=== PATIENT | male | born 1960 | race Caucasian/White ===

== ENCOUNTER → 2019-09-25 15:03 | Outpatient (BNVA) | payer MEDICARE, OTHER, SELFPAY | PROVIDERS: Family Provider Internal Medicine; PCP Internal Medicine; Visit Provider Internal Medicine | DX: E11.9 Type 2 diabetes mellitus without complications (principal); K75.81 Nonalcoholic steatohepatitis (NASH); E03.9 Hypothyroidism, unspecified; E78.5 Hyperlipidemia, unspecified; K21.0 Gastro-esophageal reflux disease with esophagitis; M19.90 Unspecified osteoarthritis, unspecified site; I10 Essential (primary) hypertension | CPT/HCPCS: 80053; 80061; 83036; 84443; 85025 ==

== ENCOUNTER 2021-01-09 10:44 | Emergency (ER) | payer MEDICARE, SELFPAY ==
[2021-01-09] VITALS (9 sets, daily range): BP systolic 94–123; BP diastolic 69–81; PULSE 100–131; RESP 20–29; O2SAT 91–100; BMI 27.4
--- NOTE | 2021-01-09 10:49 | CTR_ITS ---
PROCEDURE INFORMATION: Exam: CT Head Without Contrast Exam date and time: 01/09/2021 10:49 AM Age: 60 years old Clinical indication: Coma or unconsciousness; Patient HX: Found down; Additional info: Nonresponsive unknown cause TECHNIQUE: Imaging protocol: Computed tomography of the head without contrast. Total images: 209 Radiation optimization: All CT scans at this facility use at least one of these dose optimization techniques: automated exposure control; mA and/or kV adjustment per patient size (includes targeted exams where dose is matched to clinical indication); or iterative reconstruction. COMPARISON: CT head wo con* [id number] 09/08/2017 9:21 PM RADIATION DOSE METRICS: Total DLP (mGy-cm): 1017.88 FINDINGS: Brain: Large intraparenchymal hemorrhage within the left frontal lobe with minimal intraparenchymal hemorrhage present inferiorly in the right frontal lobe. Adjacent areas of edema are present in bifrontal lobes. The left frontal hemorrhage measures 4.5 by 2.5 cm and extends to the frontal horn of the left lateral ventricle. Global brain atrophy and chronic white matter ischemic changes are present. Small amount of subdural hemorrhage noted along the falx and left parietooccipital convexity. Cerebral ventricles: Small amounts of intraventricular hemorrhage are seen layering posteriorly. Ventricles are appropriate in size for degree of atrophy. Mass effect noted on frontal horn of the left lateral ventricle without significant midline shift. Paranasal sinuses: Visualized sinuses are unremarkable. No fluid levels. Mastoid air cells: Partially opacified right mastoid air cells and tympanic cavity with fracture extending through the right mastoid air cells and external auditory canal. Bones/joints: Unremarkable. No acute fracture. Soft tissues: Unremarkable. CT/CT head wo con* [id number] IMPRESSION: 1. Large intraparenchymal hemorrhage within the left frontal lobe with minimal intraparenchymal hemorrhage present inferiorly in the right frontal lobe. Adjacent areas of edema are present in bifrontal lobes. The left frontal hemorrhage measures 4.5 by 2.5 cm and extends to the frontal horn of the left lateral ventricle. 2. Small amounts of intraventricular hemorrhage are seen layering posteriorly. 3. Small amount of subdural hemorrhage noted along the falx and left parietooccipital convexity. 4. Mass effect noted on frontal horn of the left lateral ventricle without significant midline shift. 5. Partially opacified right mastoid air cells and tympanic cavity with fracture extending through the right mastoid air cells and external auditory canal. Radiation Dose CTDIVOL = (mGy): DLP = 1017.88 (mGy-cm)
--- NOTE | 2021-01-09 10:51 | XRR_ITS ---
PROCEDURE INFORMATION: Exam: XR Chest Exam date and time: 01/09/2021 10:51 AM Age: 60 years old Clinical indication: Device placement; Other: Et and ng placement; Additional info: Dyspnea/cough TECHNIQUE: Imaging protocol: XR of the chest. Views: 1 view. Total images: 1 COMPARISON: CR Arthrgram Shoulder RIGHT [id number] 04/16/2018 12:57 PM FINDINGS: Tubes, catheters and devices: An endotracheal tube is present, terminating above the huong by 5 cm. Nasogastric tube has its proximal port in the lower esophagus, recommend advancement by 7-10 cm. Lungs: Streaky left basilar opacity favors atelectasis. Benign granulomatous disease of the lung is noted. Pleural spaces: Unremarkable. No pleural effusion. No pneumothorax. Heart/Mediastinum: Unremarkable. No cardiomegaly. Bones/joints: Osseous structures are unchanged from the prior exam. XR/XR chest 1V portable [id number] IMPRESSION: 1. An endotracheal tube is present, terminating above the huong by 5 cm. 2. Nasogastric tube has its proximal port in the lower esophagus, recommend advancement by 7-10 cm. 3. Streaky left basilar opacity favors atelectasis. Radiation Dose CTDIVOL = (mGy): DLP = (mGy-cm)
--- NOTE | 2021-01-09 10:56 | ECG_ITS ---
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 Measurements Intervals [place] Rate: 126 P: [place]: QRS: -32 QRSD: 153 T: 55 QT: 426 QTc: 617 Interpretive Statements ATRIAL FLUTTER/TACHYCARDIA WITH RAPID VENTRICULAR RESPONSE INDETERMINATE AXIS RIGHT BUNDLE BRANCH BLOCK [120+ ms QRS DURATION, UPRIGHT V1, 40+ ms S IN I/aVL/V4/V5/V6] No previous ECG available for comparison Electronically Signed On 01-09-2021 21:28:24 CDT by Cheikh Cuellar M.D. [id number]
[2021-01-09 10:58] LABS: ABG PCO2 34.4 mmHg (35-45); ABG PH Result 7.12 (7.35-7.45); Alveolar-Arterial Oxygen Gradi 71.7 mmHg (5-10); Arterial Blood Gas Hematocrit 57.2 % (42-52); Blood Gas Allen Test Pos; Blood Gas Operator Identificat MONRO; Blood Gas Sample Site Brachial, right; Blood Gas Sample Type Arterial; Blood Gas Tidal Volume 0.45; Carboxyhemoglobin 1.4 %THgb (0.4-20.1); HCO3 ABG 11.3 mmol/L (22-26); HGB O2 Sat 94.7 % (95-100); Ionized Calcium Level - ABG 1.4 mmol/L (1.1-1.4); Methemoglobin 0.6 % (0.4-1.5); Oxygen Device VENT; Oxygen Saturation ABG 96.5; Potassium Level - ABG 3.9 mmol/L (3.5-5.0); Total Hemoglobin 18.6 g/dL (14-18)
--- NOTE | 2021-01-09 10:58 | CTR_ITS ---
PROCEDURE INFORMATION: Exam: CT Abdomen And Pelvis Without Contrast Exam date and time: 01/09/2021 10:58 AM Age: 60 years old Clinical indication: Unresponsive; Found down; Abd pain TECHNIQUE: Imaging protocol: Computed tomography of the abdomen and pelvis without contrast. Radiation optimization: All CT scans at this facility use at least one of these dose optimization techniques: automated exposure control; mA and/or kV adjustment per patient size (includes targeted exams where dose is matched to clinical indication); or iterative reconstruction. COMPARISON: No relevant prior studies available. RADIATION DOSE METRICS: Total DLP (mGy-cm): 1130.49 FINDINGS: Tubes, catheters and devices: There is an enteric tube extending down into the stomach. Lungs: There is bilateral dependent/posterior airspace disease, more prominent on the left. This could be due to pneumonia or aspiration pneumonitis as well as with atelectasis. Liver: The liver is homogeneous and is not enlarged. Gallbladder and bile ducts: No calcified gallstones, gallbladder wall thickening, or pericholecystic inflammation. No biliary ductal dilation. Pancreas: No pancreatic enlargement, peripancreatic inflammation, or ductal dilation. Spleen: The spleen is homogeneous and is not enlarged. There is accessory splenic tissue. Adrenal glands: No adrenal mass. Kidneys and ureters: No hydronephrosis or nephrolithiasis. Stomach and bowel: No bowel obstruction, colitis or diverticulitis. Appendix: The appendix has a normal caliber with no wall thickening. No periappendiceal stranding. Intraperitoneal space: No hemoperitoneum, pneumoperitoneum or ascites. Vasculature: There is coronary artery disease. The aorta is atherosclerotic. No abdominal aortic aneurysm. Lymph nodes: No pathologically enlarged lymph nodes. Urinary bladder: No urinary bladder calculus or wall thickening. There is a Valadez catheter in the urinary bladder. Reproductive: Calcification of the vas deferens bilaterally which can be associated with diabetes mellitus. Bones/joints: There are bilateral lower rib fractures, some appear acute while others are subacute or chronic. There is a fracture of the coccyx which could be acute or subacute. The sacroiliac joints and symphysis pubis are not diastatic. Soft tissues: Tiny umbilical hernia containing fat. CT/CT abdomen pelvis wo con [id number] IMPRESSION: 1. Acute versus subacute coccygeal fracture. 2. Bilateral lower rib fractures, of varying ages. 3. No solid organ injury or hemoperitoneum. 4. Bibasilar airspace disease. Considerations include pneumonia or aspiration pneumonitis. Radiation Dose CTDIVOL = (mGy): DLP = 1130.49 (mGy-cm)
--- NOTE | 2021-01-09 11:03 | W.ED.GENADLT ---
HPI - General Adult General: Chief complaint: Cardiac Arrest/CPR Stated complaint: POST CODE/ RSI Time Seen by Provider: 01/09/21 10:48 History of Present Illness: HPI narrative: 60-year-old male presents via EMS. They were called for a nonresponsive patient on arrival he was in acute respiratory distress with respiratory rate in the 40s he was treated by RSI and intubated. Shortly after that patient was intubated he was given 80 of rocuronium 160 mg of ketamine. Shortly after this patient went into PEA he was given 1 epi his rhythm changed to V. tach he was shocked at 200 and given 300 of amiodarone. He then returned to sinus tachycardia. On arrival here he is in A. fib rate in the 120s. Blood sugar on blood gas over 600. Patient was last seen by family members 3 days ago. Relieving factors: none Exacerbating factors: none Review of Systems General: Reports: ROS unobtainable due to medical condition [facility] ED PFSH: Medical History (Updated 01/16/21 @ 12:18 by Efra Milner DO) Alcohol dependence, uncomplicated Diabetes mellitus Essential (primary) hypertension GERD (gastroesophageal reflux disease) Hyperlipidemia, unspecified Osteoarthritis Family History Other Asthma Diabetes Heart disease Hypertension Social History Quit status (tobacco): has quit using tobacco Year quit tobacco: 08/2020 Former quit date comment: 0.25 PPD X 35 YEARS Alcohol intake: current History of recent travel: No Physical Exam HENMT: COMMON NORMALS: normocephalic, atraumatic and hearing grossly normal bilaterally HEAD & SCALP: normocephalic and atraumatic Neck/C-Spine: COMMON NORMALS: no JVD Lymph: LYMPHATIC: no lymphadenopathy noted and no lymphedema noted Resp: COMMON NORMALS: normal respiratory effort, No retractions, No use of accessory muscles and clear to auscultation bilaterally AUSCULTATION: clear to auscultation bilaterally Cardio: COMMON NORMALS: no JVD, regular rate, regular rhythm and No murmurs present (Cardio) RATE: regular rate RHYTHM: regular rhythm GI: COMMON NORMALS: Soft to palpation and No hepatosplenomegaly present AUSCULTATION: Yes normoactive bowel sounds PALPATION: Yes Soft to palpation, No Tenderness to palpation present (GI), No Guarding due to palpation present (GI) and Yes No hepatosplenomegaly present Extremity: COMMON NORMALS: normal to inspection, capillary refill normal, no clubbing, cyanosis or edema, no calf tenderness and no pedal edema Skin: COMMON NORMALS: no rashes or lesions noted GENERAL SKIN EXAM: no rashes or lesions noted Procedures Central Line Placement Right SC: Time Out Performed: Yes Patient Placed on Monitor/Pulse Ox: Yes MD Prep: mask, gown and gloves Central Line Prep: Chlorhexidine scrub Ultrasound Used for Placement: Yes Central Line Lumen Inserted: triple Post Procedure: sutured in place, good blood return, all ports aspirated, flushed, capped and sterile dressing applied Post Procedure X-Ray: tip of catheter in good position and no pneumothorax seen Patient Tolerated Procedure: well Complications: none Course Vital Signs: Vital signs: Vital Signs Pulse Rate 111 H 01/09/21 15:33 Respiratory Rate 29 H 01/09/21 13:40 Blood Pressure 94/69 01/09/21 15:33 Pulse Oximetry 93 01/09/21 15:33 MDM - General Adult MDM Narrative: Medical decision making narrative: On initial evaluation patient was found to have DKA he was resuscitated initially and once stabilized enough he would be proceeded to CT to evaluate for further injuries. At that point we found the patient had a large intracranial hemorrhage in addition to that he has various fractures right sacral alae fracture a number of rib fractures are somewhat old and some appear newer. In talking to the family patient frequently falls. He had no external trauma to the head that we could find so can be certain this is from trauma although it sounds like it may have been. This would certainly explain the various rib fractures. We will initially plan to admit him here but with the finding of intracranial bleed he was transferred to the ED at [facility]. Trauma service will see him initially in consult for his DKA and other medical issues. Lab Data: Labs: Lab Results 01/09/21 01/09/21 01/09/21 10:45 10:53 10:56 WBC 12.8 10^3/uL H 10 ^3/uL (4.0-10.0) RBC 5.81 10^6/uL H 10 ^6/uL (4.1-5.3) Hgb 18.0 g/dL H g/dL (11.7-16.6) Hct 58.4 % H % (42.0-52.0) MCV 100.5 fl H fl (80-94) MCH 31.0 pg pg (28.0-34.0) MCHC 30.8 g/dL g/dL (30.0-36.0) RDW 12.8 % % (12.1-15.1) Plt Count 215 10^3/cmm 10^3 /cmm (130-400) MPV 12.3 fL H fL (7.4-10.4) Neut % (Auto) 71.5 % % Lymph % (Auto) 17.2 % % [place] % (Auto) 9.5 % % Eos % (Auto) 0.1 % % Baso % (Auto) 0.5 % % Neut # (Auto) 9.16 10^3/uL H 10 ^3/uL (1.8-7.7) Lymph # (Auto) 2.2 10^3/uL 10^3/ uL (0.8-4.8) [place] # (Auto) 1.2 10^3/uL H 10^ 3/uL (0.2-0.9) Eos # (Auto) 0.0 10^3/uL 10^3/ uL (0.0-0.8) Baso # (Auto) 0.1 10^3/uL 10^3/ uL (0.0-0.1) Nucleated RBC % (a uto) 0 % % Nucleated RBCs # 0.0 /100WBC /100W BC PT INR APTT Specimen Type Arterial Sample Site Brachial, right ABG pH 7.12 L* (7.35-7.45) ABG pCO2 34.4 mmHg L mmHg (35-45) ABG pO2 114.0 mmHg H mmHg (80.0-100.0) ABG HCO3 11.3 mmol/L L mmo l/L (22-26) ABG O2 Saturation 96.5 ABG Base Excess -17.0 mmol/L L mm ol/L (-2.0-2.0) Santana Test Pos A-a O2 Gradient 71.7 mmHg H mmHg (5-10) Hematocrit 57.2 % H % (42-52) Hgb O2 Saturation 94.7 % L % (95-100) Carboxyhemoglobin 1.4 %THgb %THgb (0.4-20.1) Methemoglobin 0.6 % % (0.4-1.5) Total Hemoglobin 18.6 g/dL H g/dL (14-18) Sodium 160.0 mmol/L H mm ol/L (131-143) Potassium 3.9 mmol/L mmol/L (3.5-5.0) Glucose 682.0 mg/dL H mg/ dL (70-115) Ionized Calcium 1.4 mmol/L mmol/L (1.1-1.4) O2 Delivery Device Vent FiO2 100.0 % % Tidal Volume 0.45 PEEP 5.0 cmH20 cmH20 [employer] Equipment Mechanic ID Monro Chloride Carbon Dioxide Anion Gap BUN Creatinine GFR Calculation POC Glucose 527 mg/dL H* mg/d L (70-110) Calculated Osmolal ity Lactic Acid Lactic Acid (Sepsi s) Calcium Phosphorus Magnesium Total Bilirubin AST ALT Alkaline Phosphata se Ammonia Creatine Kinase Troponin T Baselin e Troponin T 120 [place] Troponin T C-Reactive Protein Total Protein Albumin Globulin Lipase Procalcitonin Urine Color Urine Appearance Urine pH Ur Specific Gravit y Urine Protein Urine Glucose (UA) Urine Ketones Urine Blood Urine Nitrate Urine Bilirubin Urine Urobilinogen Ur Leukocyte Liliane ase Urine RBC Urine WBC Ur Squamous Epith Cells Amorphous Sediment Urine Bacteria Urine Mucus Urine Opiates Scre en Ur Barbiturates Sc reen Ur Phencyclidine S crn Ur Amphetamines Sc reen U Benzodiazepines Scrn Urine Cocaine Scre en U Marijuana (THC) Screen Ethyl Alcohol Serum Ketones SARS-CoV-2 Ag (Rap id) 01/09/21 01/09/21 01/09/21 10:56 10:56 10:56 WBC RBC Hgb Hct MCV MCH MCHC RDW Plt Count MPV Neut % (Auto) Lymph % (Auto) [place] % (Auto) Eos % (Auto) Baso % (Auto) Neut # (Auto) Lymph # (Auto) [place] # (Auto) Eos # (Auto) Baso # (Auto) Nucleated RBC % (a uto) Nucleated RBCs # PT 15.80 SECONDS H S ECONDS (12.1-14.9) INR 1.22 H (0.8-1.2) APTT 24.7 SECONDS SECO NDS (23.9-36.7) Specimen Type Sample Site ABG pH ABG pCO2 ABG pO2 ABG HCO3 ABG O2 Saturation ABG Base Excess Santana Test A-a O2 Gradient Hematocrit Hgb O2 Saturation Carboxyhemoglobin Methemoglobin Total Hemoglobin Sodium 151 mmol/L H mmol /L (136-145) Potassium 4.0 mmol/L mmol/L (3.5-5.1) Glucose 618 mg/dL H* mg/d L (65-115) Ionized Calcium O2 Delivery Device FiO2 Tidal Volume PEEP [employer] Equipment Mechanic ID Chloride 104 mmol/L mmol/L (98-107) Carbon Dioxide 12 mmol/L L mmol/ L (22-29) Anion Gap 39.0 H (5-19) BUN 73 mg/dL H mg/dL (8-23) Creatinine 2.9 mg/dL H mg/dL (0.7-1.2) GFR Calculation 22.2 mL/min L mL/ min (90-130) POC Glucose Calculated Osmolal ity 362 mOsm/kg H mOs m/kg (285-295) Lactic Acid 4.8 mmol/L H* mmo l/L (0.5-2.2) Lactic Acid (Sepsi s) Calcium 10.1 mg/dL mg/dL (8.5-10.5) Phosphorus Magnesium 3.1 mg/dL H mg/dL (1.7-2.3) Total Bilirubin 0.6 mg/dL mg/dL (0.15-1.2) AST 26 U/L U/L (0-40) ALT 23 U/L U/L (0-41) Alkaline Phosphata se 92 IU/L IU/L (40-130) Ammonia Creatine Kinase 95 U/L U/L (39-308) Troponin T Baselin e Troponin T 120 [place] Troponin T C-Reactive Protein Total Protein 7.6 g/dL g/dL (6.6-8.7) Albumin 3.5 g/dL g/dL (3.5-5.2) Globulin 4.1 g/dL g/dL (1.3-4.6) Lipase Procalcitonin Urine Color Urine Appearance Urine pH Ur Specific Gravit y Urine Protein Urine Glucose (UA) Urine Ketones Urine Blood Urine Nitrate Urine Bilirubin Urine Urobilinogen Ur Leukocyte Liliane ase Urine RBC Urine WBC Ur Squamous Epith Cells Amorphous Sediment Urine Bacteria Urine Mucus Urine Opiates Scre en Ur Barbiturates Sc reen Ur Phencyclidine S crn Ur Amphetamines Sc reen U Benzodiazepines Scrn Urine Cocaine Scre en U Marijuana (THC) Screen Ethyl Alcohol < 10 mg/dL mg/dL (0-10) Serum Ketones SARS-CoV-2 Ag (Rap id) 01/09/21 01/09/21 01/09/21 10:56 10:56 10:56 WBC RBC Hgb Hct MCV MCH MCHC RDW Plt Count MPV Neut % (Auto) Lymph % (Auto) [place] % (Auto) Eos % (Auto) Baso % (Auto) Neut # (Auto) Lymph # (Auto) [place] # (Auto) Eos # (Auto) Baso # (Auto) Nucleated RBC % (a uto) Nucleated RBCs # PT INR APTT Specimen Type Sample Site ABG pH ABG pCO2 ABG pO2 ABG HCO3 ABG O2 Saturation ABG Base Excess Santana Test A-a O2 Gradient Hematocrit Hgb O2 Saturation Carboxyhemoglobin Methemoglobin Total Hemoglobin Sodium Potassium Glucose Ionized Calcium O2 Delivery Device FiO2 Tidal Volume PEEP [employer] Equipment Mechanic ID Chloride Carbon Dioxide Anion Gap BUN Creatinine GFR Calculation POC Glucose Calculated Osmolal ity Lactic Acid Lactic Acid (Sepsi s) Calcium Phosphorus Magnesium Total Bilirubin AST ALT Alkaline Phosphata se Ammonia 54 umol/L umol/L (16-60) Creatine Kinase Troponin T Baselin e 54 ng/L H ng/L (0-15) Troponin T 120 [place] Troponin T C-Reactive Protein Total Protein Albumin Globulin Lipase Procalcitonin Urine Color Urine Appearance Urine pH Ur Specific Gravit y Urine Protein Urine Glucose (UA) Urine Ketones Urine Blood Urine Nitrate Urine Bilirubin Urine Urobilinogen Ur Leukocyte Liliane ase Urine RBC Urine WBC Ur Squamous Epith Cells Amorphous Sediment Urine Bacteria Urine Mucus Urine Opiates Scre en Ur Barbiturates Sc reen Ur Phencyclidine S crn Ur Amphetamines Sc reen U Benzodiazepines Scrn Urine Cocaine Scre en U Marijuana (THC) Screen Ethyl Alcohol Serum Ketones Positive H (Negative) SARS-CoV-2 Ag (Rap id) 01/09/21 01/09/21 01/09/21 10:56 11:06 11:06 WBC RBC Hgb Hct MCV MCH MCHC RDW Plt Count MPV Neut % (Auto) Lymph % (Auto) [place] % (Auto) Eos % (Auto) Baso % (Auto) Neut # (Auto) Lymph # (Auto) [place] # (Auto) Eos # (Auto) Baso # (Auto) Nucleated RBC % (a uto) Nucleated RBCs # PT INR APTT Specimen Type Sample Site ABG pH ABG pCO2 ABG pO2 ABG HCO3 ABG O2 Saturation ABG Base Excess Santana Test A-a O2 Gradient Hematocrit Hgb O2 Saturation Carboxyhemoglobin Methemoglobin Total Hemoglobin Sodium Potassium Glucose Ionized Calcium O2 Delivery Device FiO2 Tidal Volume PEEP [employer]door Power Equipment Mechanic ID Chloride Carbon Dioxide Anion Gap BUN Creatinine GFR Calculation POC Glucose Calculated Osmolal ity Lactic Acid Lactic Acid (Sepsi s) Calcium Phosphorus Magnesium Total Bilirubin AST ALT Alkaline Phosphata se Ammonia Creatine Kinase Troponin T Baselin e Troponin T 120 [place] Troponin T C-Reactive Protein 13.6 mg/L H mg/L (0.0-4.9) Total Protein Albumin Globulin Lipase Procalcitonin 0.19 ng/mL ng/mL (0-0.5) Urine Color Yellow (Yellow) Urine Appearance Clear (CLEAR) Urine pH 5 (5-7) Ur Specific Gravit y 1.015 (1.005-1.030) Urine Protein 3+ H (Negative) Urine Glucose (UA) 4+ H (Normal) Urine Ketones 1+ H (Negative) Urine Blood 2+ H (Negative) Urine Nitrate Negative (Negative) Urine Bilirubin Neg (Negative) Urine Urobilinogen Norm mg/dL mg/dL (Negative) Ur Leukocyte Liliane ase Negative (Negative) Urine RBC Rare /hpf /hpf (0-2) Urine WBC None /hpf /hpf (0-5) Ur Squamous Epith Cells None /hpf /hpf (0-5) Amorphous Sediment Not Reportable Urine Bacteria Trace /hpf /hpf (NONE) Urine Mucus Trace /hpf /hpf Urine Opiates Scre en Negative ng/mL ng /mL (Negative) Ur Barbiturates Sc reen Negative ng/mL ng /mL (Negative) Ur Phencyclidine S crn Negative ng/mL ng /mL (Negative) Ur Amphetamines Sc reen Negative ng/mL ng /mL (Negative) U Benzodiazepines Scrn Negative ng/mL ng /mL (Negative) Urine Cocaine Scre en Negative ng/mL ng /mL (Negative) U Marijuana (THC) Screen Negative ng/mL ng /mL (Negative) Ethyl Alcohol Serum Ketones SARS-CoV-2 Ag (Rap id) 01/09/21 01/09/21 01/09/21 11:51 12:02 12:03 WBC RBC Hgb Hct MCV MCH MCHC RDW Plt Count MPV Neut % (Auto) Lymph % (Auto) [place] % (Auto) Eos % (Auto) Baso % (Auto) Neut # (Auto) Lymph # (Auto) [place] # (Auto) Eos # (Auto) Baso # (Auto) Nucleated RBC % (a uto) Nucleated RBCs # PT INR APTT Specimen Type Arterial Sample Site Brachial, right ABG pH 7.25 L (7.35-7.45) ABG pCO2 36.9 mmHg mmHg (35-45) ABG pO2 87.9 mmHg mmHg (80.0-100.0) ABG HCO3 16.2 mmol/L L mmo l/L (22-26) ABG O2 Saturation 95.5 ABG Base Excess -10.2 mmol/L L mm ol/L (-2.0-2.0) Santana Test Pos A-a O2 Gradient 47.1 mmHg H mmHg (5-10) Hematocrit 48.3 % % (42-52) Hgb O2 Saturation 93.5 % L % (95-100) Carboxyhemoglobin 1.2 %THgb %THgb (0.4-20.1) Methemoglobin 0.8 % % (0.4-1.5) Total Hemoglobin 15.8 g/dL g/dL (14-18) Sodium 164.0 mmol/L H mm ol/L 154 mmol/L H mmol /L (131-143) (136-145) Potassium 3.0 mmol/L L mmol /L 3.7 mmol/L mmol/L (3.5-5.0) (3.5-5.1) Glucose 571.0 mg/dL H mg/ dL 544 mg/dL H* mg/d L (70-115) (65-115) Ionized Calcium 1.3 mmol/L mmol/L (1.1-1.4) O2 Delivery Device Vent FiO2 70.0 % % Tidal Volume 0.45 PEEP 8.0 cmH20 cmH20 [employer]door [employer] Equipment Mechanic ID [place] Chloride 108 mmol/L H mmol /L (98-107) Carbon Dioxide 15 mmol/L L mmol/ L (22-29) Anion Gap 34.7 H (5-19) BUN 69 mg/dL H mg/dL (8-23) Creatinine 2.9 mg/dL H mg/dL (0.7-1.2) GFR Calculation 22.2 mL/min L mL/ min (90-130) POC Glucose 483 mg/dL H mg/dL (70-110) Calculated Osmolal ity 363 mOsm/kg H mOs m/kg (285-295) Lactic Acid Lactic Acid (Sepsi s) Calcium 9.3 mg/dL mg/dL (8.5-10.5) Phosphorus 8.1 mg/dL H* mg/d L (2.5-4.5) Magnesium Total Bilirubin AST ALT Alkaline Phosphata se Ammonia Creatine Kinase Troponin T Baselin e Troponin T 120 [place] Troponin T C-Reactive Protein Total Protein Albumin Globulin Lipase 1109 U/L H U/L (13-60) Procalcitonin Urine Color Urine Appearance Urine pH Ur Specific Gravit y Urine Protein Urine Glucose (UA) Urine Ketones Urine Blood Urine Nitrate Urine Bilirubin Urine Urobilinogen Ur Leukocyte Liliane ase Urine RBC Urine WBC Ur Squamous Epith Cells Amorphous Sediment Urine Bacteria Urine Mucus Urine Opiates Scre en Ur Barbiturates Sc reen Ur Phencyclidine S crn Ur Amphetamines Sc reen U Benzodiazepines Scrn Urine Cocaine Scre en U Marijuana (THC) Screen Ethyl Alcohol Serum Ketones SARS-CoV-2 Ag (Rap id) 01/09/21 01/09/21 01/09/21 13:16 13:27 13:27 WBC RBC Hgb Hct MCV MCH MCHC RDW Plt Count MPV Neut % (Auto) Lymph % (Auto) [place] % (Auto) Eos % (Auto) Baso % (Auto) Neut # (Auto) Lymph # (Auto) [place] # (Auto) Eos # (Auto) Baso # (Auto) Nucleated RBC % (a uto) Nucleated RBCs # PT INR APTT Specimen Type Sample Site ABG pH ABG pCO2 ABG pO2 ABG HCO3 ABG O2 Saturation ABG Base Excess Santana Test A-a O2 Gradient Hematocrit Hgb O2 Saturation Carboxyhemoglobin Methemoglobin Total Hemoglobin Sodium Potassium Glucose Ionized Calcium O2 Delivery Device FiO2 Tidal Volume PEEP Outdoor Power Equipment Mechanic ID Chloride Carbon Dioxide Anion Gap BUN Creatinine GFR Calculation POC Glucose 498 mg/dL H mg/dL (70-110) Calculated Osmolal ity Lactic Acid Lactic Acid (Sepsi s) 3.6 mmol/L H mmol /L (0.5-2.2) Calcium Phosphorus Magnesium Total Bilirubin AST ALT Alkaline Phosphata se Ammonia Creatine Kinase Troponin T Baselin e Troponin T 120 [place] 59.03 ng/L H ng/L (0-15) Delta Troponin T 5.03 ABS# ABS# (0-10) C-Reactive Protein Total Protein Albumin Globulin Lipase Procalcitonin Urine Color Urine Appearance Urine pH Ur Specific Gravit y Urine Protein Urine Glucose (UA) Urine Ketones Urine Blood Urine Nitrate Urine Bilirubin Urine Urobilinogen Ur Leukocyte Liliane ase Urine RBC Urine WBC Ur Squamous Epith Cells Amorphous Sediment Urine Bacteria Urine Mucus Urine Opiates Scre en Ur Barbiturates Sc reen Ur Phencyclidine S crn Ur Amphetamines Sc reen U Benzodiazepines Scrn Urine Cocaine Scre en U Marijuana (THC) Screen Ethyl Alcohol Serum Ketones SARS-CoV-2 Ag (Rap id) 01/09/21 13:48 WBC RBC Hgb Hct MCV MCH MCHC RDW Plt Count MPV Neut % (Auto) Lymph % (Auto) [place] % (Auto) Eos % (Auto) Baso % (Auto) Neut # (Auto) Lymph # (Auto) [place] # (Auto) Eos # (Auto) Baso # (Auto) Nucleated RBC % (a uto) Nucleated RBCs # PT INR APTT Specimen Type Sample Site ABG pH ABG pCO2 ABG pO2 ABG HCO3 ABG O2 Saturation ABG Base Excess Santana Test A-a O2 Gradient Hematocrit Hgb O2 Saturation Carboxyhemoglobin Methemoglobin Total Hemoglobin Sodium Potassium Glucose Ionized Calcium O2 Delivery Device FiO2 Tidal Volume PEEP Outdoor Power Equipment Mechanic ID Chloride Carbon Dioxide Anion Gap BUN Creatinine GFR Calculation POC Glucose Calculated Osmolal ity Lactic Acid Lactic Acid (Sepsi s) Calcium Phosphorus Magnesium Total Bilirubin AST ALT Alkaline Phosphata se Ammonia Creatine Kinase Troponin T Baselin e Troponin T 120 [place] Troponin T C-Reactive Protein Total Protein Albumin Globulin Lipase Procalcitonin Urine Color Urine Appearance Urine pH Ur Specific Gravit y Urine Protein Urine Glucose (UA) Urine Ketones Urine Blood Urine Nitrate Urine Bilirubin Urine Urobilinogen Ur Leukocyte Liliane ase Urine RBC Urine WBC Ur Squamous Epith Cells Amorphous Sediment Urine Bacteria Urine Mucus Urine Opiates Scre en Ur Barbiturates Sc reen Ur Phencyclidine S crn Ur Amphetamines Sc reen U Benzodiazepines Scrn Urine Cocaine Scre en U Marijuana (THC) Screen Ethyl Alcohol Serum Ketones SARS-CoV-2 Ag (Rap id) Negative (Negative) Critical Care Time Critical Care Time: Critical Care Time: Yes Total Critical Care Time: 45 Attestation: This case had a high probability of a clinically significant, sudden, or life threatening deterioration of this patient's condition which required my full and direct attention, intervention and personal management. Critical care time separate from procedures (central line placement) Discharge Plan Discharge Patient Disposition: Transfer to ED Clinical Impression: Intracranial hemorrhage, DKA (diabetic ketoacidosis), Sacral fracture, Closed rib fracture, ETOH abuse Prescriptions: No Action loratadine [Allergy Relief (loratadine)] 10 mg tablet 10 mg PO DAILY RF: 0 ibuprofen-diphenhydramine cit [Motrin PM] 200-38 mg tablet 1 cap PO ONCE RF: 0 Systane Balance 0.6 % drops 1 drop ophthalmic (eye) ONCE PRN (Reason: Dry Eyes) RF: 0 timolol 0.25 % drops 1 drop ophthalmic (eye) BID RF: 0 Lumigan 0.01 % drops 1 drop ophthalmic (eye) ONCE RF: 0 Digest Probiotic (S.boulardii) 250 mg capsule 250 mg PO ONCE RF: 0 multivitamin Capsule 1 cap PO QAM RF: 0 tizanidine 4 mg capsule 4 mg PO Q8H PRN (Reason: muscle spasticity) 7 Days Qty: 30 RF: 0 omeprazole 10 mg capsule,delayed release(DR/EC) 10 mg PO DAILY Qty: 90 RF: 3 simvastatin 20 mg tablet 20 mg PO DAILY Qty: 90 RF: 3 lisinopril-hydrochlorothiazide 20-12.5 mg tablet 1 tab PO DAILY Qty: 90 RF: 3 venlafaxine 75 mg capsule,extended release 24hr 75 mg PO QAM Qty: 90 RF: 3 meloxicam 15 mg tablet 15 mg PO DAILY Qty: 90 RF: 3 metformin 1,000 mg tablet extended release 24hr 1,000 mg PO BID Qty: 180 RF: 3 glimepiride 4 mg tablet 4 mg PO BID Qty: 60 RF: 3 Glyxambi 25-5 mg tablet 1 tab PO QAM Qty: 90 RF: 3 montelukast [Singulair] 10 mg tablet 10 mg PO DAILY Qty: 30 RF: 3 Coding Level of Care Code ED Stenciler for Carlosg Miryam
[2021-01-09 11:15] LABS: Basophils # 0.1 10^3/uL (0.0-0.1); Basophils % 0.5 %; Eosinophils % 0.1 %; Hematocrit 58.4 % (42.0-52.0); Lymphocytes # 2.2 10^3/uL (0.8-4.8); Lymphocytes % 17.2 %; Mean Corpuscular HGB Conc 30.8 g/dL (30.0-36.0); Mean Corpuscular Volume 100.5 fl (80-94); Mean Platelet Volume 12.3 fL (7.4-10.4); Monocytes # 1.2 10^3/uL (0.2-0.9); Monocytes % 9.5 %; Neutrophils # 9.16 10^3/uL (1.8-7.7); Neutrophils % 71.5 %; Nucleated Red Blood Cells % 0 %; Platelet Count 215 10^3/cmm (130-400); Red Blood Count 5.81 10^6/uL (4.1-5.3); Red Cell Distribution Width 12.8 % (12.1-15.1); White Blood Count 12.8 10^3/uL (4.0-10.0)
[2021-01-09 11:21] LABS: Glucose Point of Care 527 mg/dL (70-110)
[2021-01-09 11:24] LABS: INR 1.22 (0.8-1.2)
[2021-01-09 11:26] LABS: Partial Thromboplastin Time 24.7 SECONDS (23.9-36.7)
[2021-01-09 11:33] LABS: Amphetamines Screen Urine Negative (Negative); Barbiturates Screen Urine Negative (Negative); Benzodiazepines Screen Urine Negative (Negative); Cocaine Screen Urine Negative (Negative); Opiate Screen Urine Negative (Negative); PCP Screen Urine Negative (Negative); THC Screen Urine Negative (Negative)
[2021-01-09 11:39] LABS: Ammonia 54 umol/L (16-60)
[2021-01-09 11:41] LABS: Alanine Aminotransferase 23 U/L (0-41); Albumin Level 3.5 g/dL (3.5-5.2); Alkaline Phosphatase 92 IU/L (40-130); Aspartate Amino Transferase 26 U/L (0-40); Blood Urea Nitrogen 73 mg/dL (8-23); Calcium 10.1 mg/dL (8.5-10.5); Carbon Dioxide 12 mmol/L (22-29); Chloride 104 mmol/L (98-107); Creatine Phosphokinase 95 U/L (39-308); Globulin 4.1 g/dL (1.3-4.6); Glomerular Filtration Rate 22.2 mL/min (90-130); Magnesium 3.1 mg/dL (1.7-2.3); Osmolality Calculated 362 mOsm/kg (285-295); Sodium 151 mmol/L (136-145); Total Bilirubin 0.6 mg/dL (0.15-1.2); Total Protein 7.6 g/dL (6.6-8.7); Troponin(5th) Baseline 54 ng/L (0-15)
[2021-01-09] MEDS: insulin regular-human 100 units/1 mL 10 UNIT IVP (11:41)
[2021-01-09] MEDS: sodium bicarbonate 8.4% 1 mEq/mL 50mL Syr 100 MEQ IVP (11:42)
[2021-01-09 11:44] LABS: Lactic Sepsis W/Reflex 4.8 mmol/L (0.5-2.2)
[2021-01-09 11:45] LABS: Alcohol Level < 10 mg/dL (0-10)
[2021-01-09 11:46] LABS: Glucose 618 mg/dL (65-115)
[2021-01-09] MEDS: lidocaine 1% 5 ML in potassium chloride premix 100 ML 25 ML IV (11:46)
[2021-01-09] MEDS: sodium chloride 0.9% 1,000 ML 999 ML IV (11:46)
[2021-01-09 11:49] LABS: Ketone (Acetest) Serum Positive (Negative)
[2021-01-09 11:54] LABS: Blood Urine 2+ (Negative); Glucose Urine UA 4+ (Normal); Ketones Urine 1+ (Negative); Protein Urine 3+ (Negative); Specific Gravity, Urine 1.015 (1.005-1.030); Urine Appearance Clear (CLEAR); Urine Color Yellow (Yellow); pH Urine 5 (5-7)
[2021-01-09 11:55] LABS: Bilirubin Urine Neg (Negative); Leukocyte Esterase Urine Negative (Negative); Nitrate Urine Negative (Negative); Urobilinogen Urine Norm (Negative)
[2021-01-09 11:56] LABS: Add Urine Culture? No; Bacteria Urine TRACE /hpf; Mucus Urine TRACE /hpf; RBC Urine RARE /hpf (0-2)
--- NOTE | 2021-01-09 11:58 | PC.PHAR ---
pt unable to verify medications due to intubation. Patient's verified medications but states he does not take or fill them like he is supposed to. Glyxambi 25-5mg once daily last filled on 09/22/20, Glimeperide 4mg BID last filled 03/23/20, Montelukast 10mg once daily last filled on 11/17/20
[2021-01-09 12:00] LABS: Reflex Lactate Order REFLEX LACTIC ORDERD
[2021-01-09 12:01] LABS: ABG PCO2 36.9 mmHg (35-45); ABG PH Result 7.25 (7.35-7.45); Arterial Blood Gas Hematocrit 48.3 % (42-52); Base Excess ABG -10.2 mmol/L (-2.0-2.0); Blood Gas Allen Test Pos; Blood Gas Sample Type Arterial; Carboxyhemoglobin 1.2 %THgb (0.4-20.1); HCO3 ABG 16.2 mmol/L (22-26); HGB O2 Sat 93.5 % (95-100); Ionized Calcium Level - ABG 1.3 mmol/L (1.1-1.4); Methemoglobin 0.8 % (0.4-1.5); Oxygen Saturation ABG 95.5; PO2 ABG 87.9 mmHg (80.0-100.0); Total Hemoglobin 15.8 g/dL (14-18)
[2021-01-09 12:02] LABS: Alveolar-Arterial Oxygen Gradi 47.1 mmHg (5-10); Blood Gas Operator Identificat MONRO; Blood Gas Sample Site Brachial, right; Blood Gas Tidal Volume 0.45; Oxygen Device VENT
[2021-01-09 12:05] LABS: Glucose Point of Care 483 mg/dL (70-110)
[2021-01-09 12:37] LABS: Blood Urea Nitrogen 69 mg/dL (8-23); Calcium 9.3 mg/dL (8.5-10.5); Carbon Dioxide 15 mmol/L (22-29); Chloride 108 mmol/L (98-107); Glomerular Filtration Rate 22.2 mL/min (90-130); Osmolality Calculated 363 mOsm/kg (285-295); Sodium 154 mmol/L (136-145)
[2021-01-09 12:46] LABS: Lipase 1109 U/L (13-60)
[2021-01-09 12:47] LABS: Anion Gap 34.7 (5-19); Potassium 3.7 mmol/L (3.5-5.1)
[2021-01-09 12:48] LABS: Glucose 544 mg/dL (65-115); Phosphorus 8.1 mg/dL (2.5-4.5)
--- NOTE | 2021-01-09 12:56 | ECG_ITS ---
[facility] Test Date: 2021-01-09 Pat Name: Kay Huerta Iii Department: Room: Gender: Male [employer] Gas[employer]: : 1960 Requested By: Efra Venegas Order Number: [id number] Reina MD: Cheikh Cuellar M.D. Measurements Intervals Arp Rate: 102 P: 81 MT: 155 QRS: 54 QRSD: 101 T: 3 QT: 392 QTc: 512 Interpretive Statements SINUS TACHYCARDIA NONSPECIFIC ST & T-WAVE ABNORMALITY Compared to ECG 01/09/2021 10:59:57 T-wave abnormality now present Atrial flutter no longer present Indeterminate axis no longer present Right bundle-branch block no longer present Electronically Signed On 01-09-2021 21:34:34 CDT by Cheikh Cuellar M.D. [id number]
--- NOTE | 2021-01-09 13:10 | XRR_ITS ---
PROCEDURE INFORMATION: Exam: XR Chest Exam date and time: 01/09/2021 1:10 PM Age: 60 years old Clinical indication: Device placement; Other: Central line placement TECHNIQUE: Imaging protocol: XR of the chest. Views: 1 view. COMPARISON: CR (CHEST, ) 01/09/2021 11:18 AM FINDINGS: Tubes, catheters and devices: An endotracheal tube, nasogastric tube and central venous catheter projects in satisfactory position. Lungs: There is subsegmental atelectasis in the left lung base. The pulmonary aeration has improved since previous study. Small benign calcified granuloma is present in the left upper lobe. Pleural spaces: Unremarkable. No pleural effusion. No pneumothorax. Heart/Mediastinum: Unremarkable. No cardiomegaly. Bones/joints: Unremarkable. XR/XR chest 1V portable [id number] IMPRESSION: Improving subsegmental basilar atelectasis. Radiation Dose CTDIVOL = (mGy): DLP = (mGy-cm)
[2021-01-09] MEDS: piperacillin-tazobactam 3.375 GM in sodium chloride 0.9% (plus) 50 ML IV (13:12)
[2021-01-09 13:20] LABS: C Reactive Protein 13.6 mg/L (0.0-4.9)
[2021-01-09] MEDS: sodium chloride 0.45% 1,000 ML 200 ML IV (13:20)
[2021-01-09 13:28] LABS: Procalcitonin 0.19 ng/mL (0-0.5)
[2021-01-09] MEDS: LORazepam 2 mg/mL INJ 1 mL IVP (13:31)
[2021-01-09 13:49] LABS: Glucose Point of Care 498 mg/dL (70-110)
[2021-01-09 14:01] LABS: Lactic Acid level (Lactate) 3.6 mmol/L (0.5-2.2); Troponin 5 2HR 59.03 ng/L (0-15); Troponin 5 2HR Delta 5.03 ABS# (0-10)
--- NOTE | 2021-01-09 14:10 | PC.NURSE ---
EMS found pt unresponsive, respirations 40. 80mg rocuronium and 160 ketamine given by EMS. Pt went into PEA, 1mg of epinephrine given. Pt then when into vtach, EMS administered 1 shock of 200 joules and administered 300mg of amiodarone given by EMS, pt went into normal sinus rhythm. Pt recieved 2L of fluids be EMS prior to arrival. Pt arrived to ER at 1050. 18g left external jugluar established at 1054 10 units of insulin given at 1054 Nasogastric tube established at 1057 EKG complete at 1101 18g right AC established at 1101 Foly cather placed at 1104 with return of 85ml, clear yellow Pt stable 1110 Staff present include - Ivan Gastelum RN, Venus Do RN, Theo William RN, Milka Fiore, and Dr Efra Milner. End of note
[2021-01-09 14:24] LABS: SARS Covid-2 Antigen Negative (Negative)
[2021-01-09] MEDS: sodium chloride 0.9% 1,000 ML 150 ML IV (16:36)
== END 2021-01-09 15:39 ==
PROVIDERS: Family Medicine; Emergency Provider Family Medicine
DX: S06.309A Unspecified focal traumatic brain injury with loss of consciousness of unspecified duration, initial encounter (principal); E11.10 Type 2 diabetes mellitus with ketoacidosis without coma; F10.10 Alcohol abuse, uncomplicated; S32.10XA Unspecified fracture of sacrum, initial encounter for closed fracture; S22.43XA Multiple fractures of ribs, bilateral, initial encounter for closed fracture; I10 Essential (primary) hypertension; E78.5 Hyperlipidemia, unspecified; Z87.891 Personal history of nicotine dependence; X58.XXXA Exposure to other specified factors, initial encounter
CPT/HCPCS: 36415; 36416; 36556; 36600; 51702; 70450; 71045; 74176; 80048; 80051; 80053; 80306; 80307; 81001; 82009; 82140; 82330; 82550; 82805; 82962; 83605; 83690; 83735; 84100; 84145; 84484; 85025; 85610; 85730; 86140; 87040; 87070; 87077; 87086; 87186; 87205; 87426; 93005; 94002; 94799; 96361; 96365; 96375; 99291; 99292; C1751; J1815; J1953; J2060; J2543; J3480; J7030